=== PATIENT | female | born 1975 | race Caucasian/White ===

== ENCOUNTER 2017-04-06 13:18 | Day surgery (SDC) | payer OTHER ==
[~2017-04-06] VITALS: Ht 165.1 cm; Wt 108.9 kg
--- NOTE | ~2017-04-06 | EGD ---
EGD REPORT [facility] [address] [id number] NAME: CAROLYN BRITO : 71 STATUS : REG [facility]#: [id number] AGE: 41 ADM/REG DATE : 04/06/17 MR#: [id number] REPORT SERV DATE: 04/06/17 DICTATED BY: JUMA DUKE DATE: 04/06/17 REPORT STATUS : Draft TRANSCRIBED BY: [facility] DATE: 04/06/17 Endoscopy Center Patient Name: Carolyn Brito Date of : 1975 Attending MD: JUMA DUKE MD Procedure Date No Time: 04/06/2017 Procedure: Upper GI endoscopy Indications: Dysphagia, Gastro-esophageal reflux disease Referring MD: Sara Gsutafson Medicines: Propofol per Anesthesia Complications: No immediate complications. Procedure: Pre-Anesthesia Assessment: - ASA Grade Assessment: III - A patient with severe systemic disease. After obtaining informed consent, the endoscope was passed under direct vision. Throughout the procedure, the patient's blood pressure, pulse, and oxygen saturations were monitored continuously. The GIF [id number] was introduced through the mouth, and advanced to the third part of duodenum. The upper GI endoscopy was accomplished without difficulty. The patient tolerated the procedure well. Findings: Non-severe esophagitis with no bleeding was found in the entire esophagus. No endoscopic abnormality was evident in the esophagus to explain the patient's complaint of dysphagia. It was decided, however, to proceed with dilation. A guidewire was placed and the scope was withdrawn. Dilation was performed with a Savary dilator with mild resistance at 60 Fr. The esophagus looked satisfactory post dilation A small hiatus hernia was present. as seen on retroflexion Diffuse mild inflammation characterized by congestion (edema) and erythema was found in the entire examined stomach. The examined duodenum was normal. Impression: - Non-severe esophagitis. - No endoscopic esophageal abnormality to explain patient's dysphagia. Esophagus dilated. Dilated. - Hiatus hernia. - Gastritis. - Normal examined duodenum. Recommendation: - Patient has a contact number available for emergencies. The signs and symptoms of potential delayed EGD REPORT [address] [place]. [address] NAME: CAROLYN BRITO : [birth year] STATUS : [place] [facility] [place] [id number] AGE: 41 ADM/REG DATE : 04/06/17 MR#: [id number] REPORT SERV DATE: 04/06/17 DICTATED BY: JUMA DUKE DATE: 04/06/17 REPORT STATUS : Draft TRANSCRIBED BY: [facility] DATE: 04/06/17 complications were discussed with the patient. Return to normal activities tomorrow. Written discharge instructions were provided to the patient. - Clear liquid diet today. - diet is clear liquid today, full liquid tomorrow, soft mushy food the next day, and resume usual diet the day after that. - Continue present medications. - Return to my office as previously scheduled. - Discharge patient to home. Procedure Code(s): --- Professional --- 23055, Esophagogastroduodenoscopy, flexible, transoral; with insertion of guide wire followed by passage of dilator(s) through esophagus over guide wire Diagnosis Code(s): --- Professional --- K20.9, Esophagitis, unspecified R13.10, Dysphagia, unspecified K44.9, Diaphragmatic hernia without obstruction or gangrene K29.70, Gastritis, unspecified, without bleeding K21.9, Gastro-esophageal reflux disease without esophagitis CPT copyright 2013 [employer]. All rights reserved. The codes documented in this report are preliminary and upon printed circuit boards contact printer review may be revised to meet current compliance requirements. Juma Duke MD JUMA DUKE MD 04/06/2017 5:31 PM This report has been signed electronically. Number of Addenda: 0 Note Initiated On: 04/06/2017 4:48 PM Scope Withdrawal Time 0 hours 0 minutes 0 seconds [id number] [id number]
[~2017-04-06 13:18] MED LIST: ALAVERT10 MG PO; AMB10 PO; ASAB PO; CINNAMONPO; DEPAKOT500 PO; DITRO5 PO; DSS PO; ESKALITH PO; FISH-EPA1000 MG PO; GLUCOPHAGE1000 MG PO; KLONO1 PO; LANTUS SC; LINZESS 290 M290 MCG PO; LOPID6 PO; MEVACOR40 MG PO; MIRALAX POWDER1 PKT PO; MULTIPLE VIT PO; MYRBETRIQ50 MG PO; NEUR300 PO; NEXIUM40 PO; NOR75 PO; PRAVACHOL40 MG PO; PROTONIXIV IV; TOUJEO; TRAZ100 PO; VICTOZA18 MG/3 ML SC; VITC500 PO
== END 2017-04-06 23:59 | disposition home or self-care (01) ==
LOC: DMU 13:18
PROVIDERS: Internal Medicine Gastroenterology
PROC: 0D758ZZ Dilation of Esophagus, Via Natural or Artificial Opening Endoscopic (ICD-10-PCS; principal; 2017-04-06 11:30)
DX: K21.0 Gastro-esophageal reflux disease with esophagitis (principal); K44.9 Diaphragmatic hernia without obstruction or gangrene; K29.70 Gastritis, unspecified, without bleeding; E66.9 Obesity, unspecified; E11.9 Type 2 diabetes mellitus without complications; G47.33 Obstructive sleep apnea (adult) (pediatric); F41.9 Anxiety disorder, unspecified; F32.9 Major depressive disorder, single episode, unspecified; Z99.81 Dependence on supplemental oxygen; Z88.6 Allergy status to analgesic agent; Z88.7 Allergy status to serum and vaccine; Z79.82 Long term (current) use of aspirin; Z79.4 Long term (current) use of insulin; Z79.899 Other long term (current) drug therapy; Z68.39 Body mass index [BMI] 39.0-39.9, adult; Z90.49 Acquired absence of other specified parts of digestive tract; Z98.890 Other specified postprocedural states
CPT/HCPCS: 82962; 84703